=== PATIENT | female | born 1950 | race Caucasian/White ===

== ENCOUNTER 2019-03-30 22:33 | Inpatient (IN) | payer MEDICARE ==
--- NOTE | 2019-03-30 23:19 | RAD ---
Chest one view HISTORY: Chest pain. COMPARISON: 09/19/2009. FINDINGS: Cardiac silhouette is magnified and enlarged. Pulmonary vasculature is unremarkable. Medias tinum is midline. The lateral margin of the left hemidiaphragm is obscured. Blunting of the right lateral costophrenic angle. No evidence of pneumothorax. IMPRESSION: Enlarged cardiac silhouette, favored to represent cardiomegaly. Small amount of bilateral pleural fluid. With bibasilar atelectasis.
[2019-03-30 23:29] LABS: ALT (SGPT) 123 U/L (8-55); AST (SGOT) 113 U/L (5-34); Albumin 3.8 g/dL (3.4-4.8); Alkaline Phosphatase 79 U/L (40-150); Anion Gap 18 mmol/L (10-20); BUN (Urea Nitrogen) 30 mg/dL (9.8-20.1); Bilirubin, Total 1.2 mg/dL (0.2-1.2); Calc. Creatinine Clearance 0 mL/min (70-130); Calcium 8.8 mg/dL (7.8-10.44); Carbon Dioxide 20 mmol/L (23-31); Chloride 104 mmol/L (98-107); Estimated GFR-MDRD 37; Globulin 2.6 g/dL (2.4-3.5); Glucose 107 mg/dL (80-115); Potassium 3.6 mmol/L (3.5-5.1); Protein, Total 6.4 g/dL (6.0-8.3); Sodium 138 mmol/L (136-145)
[2019-03-30 23:30] LABS: Hemoglobin 2.7 g/dL (12.0-16.0); Mean Corpuscular HGB CONC 27.2 g/dL (32.0-36.0); Mean Corpuscular Hemoglobin 15.6 pg (27.0-31.0); Mean Corpuscular Volume 57.4 fL (78.0-98.0); Mean Platelet Volume 5.8 fL (7.4-10.4); Platelet Count 207 thou/uL (130-400); RBC Distribution Width 21.1 % (11.5-14.5); Red Blood Cell (RBC) Count 1.74 mill/uL (4.20-5.40); White Blood Cell (WBC) Count 8.1 thou/uL (4.8-10.8)
[2019-03-30 23:41] LABS: Anisocytosis SLIGHT = 6-15 cells (100X) (0-5/hpf); Elliptocytes SLIGHT = 2-5 cells (100X) (0-1/hpf); Hypochromia MODERATE=16-30 cells (100X) (0-5/hpf); Lymphocytes 24 % (21-51); MDiff Complete? YES; Microcytosis MARKED = >30 cells (100X) (0-5/hpf); Monocytes 8 % (0-10); Neutrophil 68 % (42-75); Nucleated RBC 1 % (0); Polychromasia SLIGHT = 2-3 cells (100X) (0-2/hpf); Reflex for Review?? YES; Tear Drops SLIGHT = 2-5 cells (100X) (0-1/hpf)
[2019-03-30 23:53] LABS: CKMB 2.8 ng/mL (0-6.6)
[2019-03-31 00:03] LABS: INR-International Normal Ratio 2.1; Prothrombin Time 23.9 SEC (12.0-14.7)
[2019-03-31 01:24] LABS: Hemoglobin 2.7 g/dL (12.0-16.0); Mean Corpuscular HGB CONC 26.8 g/dL (32.0-36.0); Mean Corpuscular Hemoglobin 15.2 pg (27.0-31.0); Mean Corpuscular Volume 56.9 fL (78.0-98.0); Mean Platelet Volume 5.7 fL (7.4-10.4); Platelet Count 211 thou/uL (130-400); RBC Distribution Width 20.9 % (11.5-14.5); Red Blood Cell (RBC) Count 1.74 mill/uL (4.20-5.40)
[2019-03-31 01:31] LABS: Elliptocytes SLIGHT = 2-5 cells (100X) (0-1/hpf); Eosinophils 1 % (0-10); Hypochromia MODERATE=16-30 cells (100X) (0-5/hpf); Lymphocytes 26 % (21-51); MDiff Complete? YES; Microcytosis MARKED = >30 cells (100X) (0-5/hpf); Monocytes 5 % (0-10); Neutrophil 67 % (42-75); Polychromasia SLIGHT = 2-3 cells (100X) (0-2/hpf); Tear Drops SLIGHT = 2-5 cells (100X) (0-1/hpf); White Blood Cell (WBC) Count 8.4 thou/uL (4.8-10.8)
[2019-03-31 02:37] LABS: Iron 9 ug/dL (50-170); Iron Binding Capacity, Total 480 mcg/dL (265-497)
[2019-03-31 02:39] LABS: Troponin I 0.109 ng/mL (< 0.028)
[2019-03-31] MEDS ORDERED: Nicotine 14 MG PATCH TD PRN (02:45)
[2019-03-31] MEDS ORDERED: Acetaminophen 500 MG TAB ONE (02:50)
[2019-03-31] MEDS ORDERED: Pantoprazole 40 MG VIAL ONE (02:50)
[2019-03-31] MEDS ORDERED: Ondansetron PF 4 MG/2 ML Vial ONE (02:50)
[2019-03-31] MEDS: Ondansetron PF 4 MG/2 ML Vial IVP PRN (03:14)
[2019-03-31] MEDS ORDERED: Pantoprazole 80 MG in Sodium Chloride 0.9% 100 ML IVP SCH (03:30)
[2019-03-31] MEDS ORDERED: clonazePAM 1 MG TAB PO SCH (03:30)
[2019-03-31] MEDS ORDERED: clonazePAM 1 MG TAB ONE (03:44)
--- NOTE | 2019-03-31 04:47 | HP ---
CHIEF COMPLAINT: Chest pain and shortness of breath. HISTORY OF PRESENT ILLNESS: The patient is a 68-year-old female with past medical history significant for multiple DVTs, currently anticoagulated with Xarelto, who presented to the hospital with a 4-day history of chest discomfort and associated shortness of breath. She describes the chest discomfort as a "rubber band around her chest" and along with a squeezing sensation. This has been exertional. She also has been experiencing nausea and vomiting over the past several days. She denies any melena or coffee-grounds emesis. She has noticed no bright red blood per rectum. Because of her worsening symptoms, she did present to the emergency department for further workup and treatment. Hemoglobin on arrival was 2.7. Her EKG showed sinus rhythm with no acute/dynamic ST or T-wave changes. The patient was given 80 mg of IV Protonix in the emergency department and 4 units of PRBC have also been ordered for the patient. REVIEW OF SYSTEMS: The patient reports that she has had some noticeable shortness of breath and dizziness ongoing for at least the past several months. Otherwise, review of systems is negative except that stated above. She does see her PCP, Dr. Crandall on a regular basis. ALLERGIES: OPIOIDS, MORPHINE ANALOGS, SULFA ANTIBIOTICS. HOME MEDICATIONS: 1. Clonazepam 2 mg tablet 2 mg orally b.i.d. 2. Simvastatin 40 mg tab q.p.m. 3. Xarelto 15 mg tab q.p.m. 4. Melatonin 10 mg q.p.m. 5. Tylenol 325 mg orally p.r.n. PAST MEDICAL HISTORY: Positive for restless legs syndrome, chronic fatigue, chronic hepatitis C, psoriatic arthritis. PAST SURGICAL HISTORY: Lumpectomy of left breast x3, negative biopsies for breast cancer, appendectomy, cholecystectomy, hysterectomy, orthopedic procedure on right knee, IVC filter. PSYCHIATRIC HISTORY: Depression. SOCIAL HISTORY: The patient denies any alcohol use. Denies any illicit drug use. She currently smokes half pack per day. She lives with her son here in town. FAMILY HISTORY: Noncontributory. PHYSICAL EXAMINATION: VITAL SIGNS: Blood pressure 123/46, pulse is 87, temperature 99.1, O2 saturation is 99% on room air. GENERAL: This is a moderately obese female, lying comfortably in bed, in no acute distress. Positive pallor noted. NECK: Supple. No lymphadenopathy. Trachea is midline. No JVD. CV: S1 and S2. Regular rate and rhythm. No appreciable murmurs, rubs, or gallops. LUNGS: Regular respiratory rate in pattern, overall clear to auscultation, somewhat diminished at the bases abdomen positive bowel sounds through all 4 quadrants, nontender to palpation on my exam, no rebound. EXTREMITIES: +1 nonpitting edema bilaterally, both extremities. Show no obvious rashes or evidence of chronic venous stasis dermatitis. NEUROLOGIC: Cranial nerves 2 through 12 are grossly intact. The patient is nonfocal. LABORATORY DATA: White blood cell count 8.4, RBC 1.74, hemoglobin 2.7, hematocrit 9.9, MCV 56.9. PT 23.9, INR 2.1, aPTT 38. Sodium 138, potassium 3.6, chloride 104, carbon dioxide 20, anion gap is 18, BUN 30, creatinine 1.42. Iron level is 9, TIBC is 480. Bilirubin 1.2, AST 113, ALT 123, alkaline phosphatase is 79, troponin 0.085 and 0.109 respectively. ASSESSMENT: 1. Profound microcytic anemia, hemoglobin 2.7 at presentation, hemodynamically stable without overt sign of bleeding; suspect chronic blood loss in the setting of oral anticoagulation. 2. Chest pain/demand ischemia secondary to above. 3. History of multiple (greater than 6) deep venous thrombosis, status post IVC filter, on Xarelto. 4. Elevated liver transaminases, secondary to chronic hepatitis C. 5. Renal insufficiency with creatinine 1.42, unknown baseline. 6. Tobacco abuse. PLAN: The patient has been given 80 mg IV Protonix in the ER. Four units of PRBCs to be transfused. GI to see the patient in a.m. N.p.o. after midnight. The patient does have an IVC filter placed, so we will hold Xarelto until cleared by GI. We will continue p.r.n. antiemetics and supportive care. Continue PPI. The care and plan of this patient have been discussed at length with Dr. Klein who agrees with the above. Job ID: [id number]
[2019-03-31 12:37] LABS: #Eosinphils 0.1 thou/uL (0.0-0.7); #Lymphocytes 1.7 thou/uL (1.20-3.40); #Monocytes 0.8 thou/uL (0.11-0.59); #Neutrophils 6.4 thou/uL (1.40-6.50); %Basophils 0.2 % (0.0-1.0); %Eosinophils 0.6 % (0.0-10.0); %Lymphocytes 18.5 % (21.0-51.0); %Monocytes 8.5 % (0.0-10.0); %Neutrophils 72.2 % (42.0-75.0); Hemoglobin 7.1 g/dL (12.0-16.0); Mean Corpuscular Hemoglobin 22.4 pg (27.0-31.0); Mean Corpuscular Volume 72.2 fL (78.0-98.0); Mean Platelet Volume 5.3 fL (7.4-10.4); Platelet Count 206 thou/uL (130-400); RBC Distribution Width 26.1 % (11.5-14.5); Red Blood Cell (RBC) Count 3.16 mill/uL (4.20-5.40); White Blood Cell (WBC) Count 8.9 thou/uL (4.8-10.8)
[2019-03-31 12:51] LABS: Anisocytosis MARKED = >30 cells (100X) (0-5/hpf); Hypochromia MODERATE=16-30 cells (100X) (0-5/hpf); MDiff Complete? YES; Microcytosis MODERATE=15-30 cells (100X) (0-5/hpf); Platelet Morphology Comment Appears Adequate; Polychromasia MODERATE = 3-4 cells (100X) (0-2/hpf)
[2019-03-31 13:03] LABS: Troponin I 0.119 ng/mL (< 0.028)
[2019-03-31 13:10] LABS: ALT (SGPT) 128 U/L (8-55); AST (SGOT) 102 U/L (5-34); Albumin 3.9 g/dL (3.4-4.8); Alkaline Phosphatase 83 U/L (40-150); Anion Gap 12 mmol/L (10-20); BUN (Urea Nitrogen) 28 mg/dL (9.8-20.1); Bilirubin, Total 3.4 mg/dL (0.2-1.2); Calc. Creatinine Clearance 59 mL/min (70-130); Calcium 9.1 mg/dL (7.8-10.44); Carbon Dioxide 24 mmol/L (23-31); Chloride 105 mmol/L (98-107); Estimated GFR-MDRD 40; Globulin 2.9 g/dL (2.4-3.5); Glucose 91 mg/dL (80-115); Potassium 3.6 mmol/L (3.5-5.1); Protein, Total 6.8 g/dL (6.0-8.3); Sodium 137 mmol/L (136-145)
[2019-03-31] MEDS ORDERED: GoLYTELY 4,000 ml Bottle PO SCH (17:45)
[2019-03-31] MEDS ORDERED: Iron, Sodium Ferric Gluconate 250 MG in Sodium Chloride 0.9% 100 ML IVPB SCH (18:00)
--- NOTE | 2019-03-31 20:09 | CON ---
DATE OF CONSULTATION: 03/31/2019 REASON FOR CONSULTATION: Anemia of unknown origin, iron deficiency anemia. CONSULTING PROVIDER: Julianna Tovar MD HISTORY OF PRESENT ILLNESS: The patient is a 68-year-old female with past medical history of multiple DVTs on anticoagulation, restless legs syndrome, chronic fatigue, chronic hepatitis C infection, psoriatic arthritis, hypothyroidism, and hyperlipidemia, initially presenting with complaints of chest pain and shortness of breath. She states that she was in her usual state of health until approximately five days ago when she began to experience increased shortness of breath primarily on exertion as well as increased mid chest pain. Her mid chest pain was described as, sharp pressure type sensation and would occur almost immediately with consumption of meals. This is also associated with the appearance of midepigastric abdominal pain as well as nausea and vomiting. Concerning her midepigastric abdominal pain, she states that this has been present for the last 2 to 3 days and has been intermittent, occurring at least once daily, but not necessarily occurring throughout the day. She characterized the pain as more of a "hunger pain" that was nonradiating and would reach a severity of 5 to 6/10. The pain was worse with fasting states and vomiting, better with the use of Tums and Prilosec as acid reflux therapy. This was also associated with increased nausea and vomiting with the consumption of meals and would occur primarily with solids as opposed to no symptoms with the consumption of liquids. Given the constellation of symptoms, it prompted her to seek healthcare assistance at [facility], where on admission she was noted to have a significantly decreased H and H consistent with a profound anemia. Upon questioning, the patient denies any episodes of hematemesis, melena, or hematochezia, nor does she endorse any fevers, chills, weight loss, diarrhea, or constipation. Of note, the patient's last colonoscopy was in 2003, for which she states there were "innumerable polyps seen and removed." She also had an upper endoscopy performed at that same time with no observed findings per patient. REVIEW OF SYSTEMS: A 10-category review of systems was obtained with all responses negative except for the pertinent positives as listed in HPI. PAST MEDICAL HISTORY: As per HPI. PAST SURGICAL HISTORY: Lumpectomy of the left breast, appendectomy, cholecystectomy, hysterectomy, right knee surgery, and IVC filter placement. FAMILY HISTORY: She states that her mother was diagnosed with colon cancer in her 80s. Otherwise, denies any additional malignancies. SOCIAL HISTORY: Denies any alcohol or illicit drug use, although she does smoke approximately one-half pack per day. OUTPATIENT MEDICATIONS: Reviewed. ALLERGIES: OPIOIDS, MORPHINE, AND SULFA ANTIBIOTICS. PHYSICAL EXAMINATION: VITAL SIGNS: Temperature 98.4, pulse 75, blood pressure 129/61, respiratory rate 16, and saturating 100% on room air. GENERAL: The patient is lying in bed, in no acute distress. Alert and oriented x4. HEENT: Normocephalic and atraumatic. NECK: Supple. No JVD or scleral icterus noted. CARDIOVASCULAR: 3/6 systolic murmur was best heard at the left upper sternal border with no discernible gallops or rubs. RESPIRATORY: Clear to auscultation bilaterally with no discernible wheezes or rales. ABDOMEN: Normoactive bowel sounds. Soft, nontender, and nondistended. EXTREMITIES: 1+ nonpitting edema to the mid cheung bilaterally. Otherwise, no cyanosis or clubbing. LABORATORY DATA: CBC with a white blood cell count of 8.4, hemoglobin 2.7, hematocrit 9.9, platelets 211, MCV 56.9, and RDW 20.9. INR 2.1. Chemistry with a sodium of 138, potassium 3.6, chloride 104, CO2 of 20, BUN 30, creatinine 1.42, glucose 107, AST 113, ALT 123, alkaline phosphatase 79, and total bilirubin 1.2. Iron 9, ferritin 4, and TIBC 480. IMAGING DATA: Chest x-ray obtained on March 30, 2019, showed an enlarged cardiac silhouette along with small amount of bilateral pleural fluid with bibasilar atelectasis. ASSESSMENT AND PLAN: The patient is a 68-year-old female with past medical history of multiple deep venous thrombosis on anticoagulation, restless legs syndrome, chronic fatigue, chronic hepatitis C infection, psoriatic arthritis, hypothyroidism, and hyperlipidemia, presenting with iron deficiency anemia with anemia of unknown origin. Iron deficiency anemia: The patient is presenting with the fairly acute onset of mid chest pain, dyspnea on exertion, and midepigastric abdominal pain associated with nausea and vomiting that has been present for at least the last 2 to 3 days, if not for the last 4 to 5 days. Upon evaluation of her labs in the [facility] ER, she was noted to have of microcytic anemia with iron indices consistent with an iron deficiency anemia. She currently denies any overt evidence of gastrointestinal bleeding including no hematemesis, melena, or hematochezia. However, upon speaking with her family history, she does have family history of a first-degree relative diagnosed with colon cancer after the age of 60 (it would place the patient at average risk). However, she does have a history of a colonoscopy in 2003 showing innumerable polyps. The colonoscopy is not available for review at this time, but with numerous colonic polyps, is concerning for the presence of an adenomatous process that could potentially lead to cancer contributing to her iron deficiency anemia. However, on admission with her significantly decreased H and H, she is noted to have an elevation in her troponins, which is concerning for an ongoing cardiac process, although more likely to be related to demand ischemia related to her profound anemia. With her elevated troponins, it may delay endoscopic evaluation. Recommendations; 1. Would continue to trend her troponins for evidence of active cardiac disease/pathology. 2. We will continue to replace blood via packed red blood cells with at least the initial goal of an H and H of 7/. 3. Would continue to hold any anticoagulation given the possibility of bleeding source. 4. We would plan for both esophagogastroduodenoscopy and colonoscopy for further evaluation, but would like her troponins to be stable prior to proceeding with the surgeries. We would tentatively plan for both esophagogastroduodenoscopy and colonoscopy on . 5. Would continue to trend H and H and transfuse as necessary to maintain an H and H of 7/21. 6. Would continue to monitor clinically for signs of active gastrointestinal bleeding. Gastroesophageal reflux disease: The patient is presenting with a 2 to 3-day history of increased midepigastric/right upper quadrant abdominal pain that is associated with increased nausea, vomiting, and will reach a severity of 5 to 6/10. This pain was moderately alleviated with the institution of antacids and/or acid suppression therapy as an outpatient and lends itself more to the diagnosis of gastroesophageal reflux disease. Recommendations; 1. We will evaluate this particular diagnosis on upper endoscopy on . 2. Would place the patient on a proton pump inhibitor for now given the possibility of an upper gastrointestinal bleed and/or treatment of this acid reflux. We will continue to follow. Please call with any questions. Job ID: [id number]
[2019-03-31] MEDS ORDERED: Non-Formulary Item 1 EACH (Melatonin [Melatonin] 1 TAB) PO SCH (21:00)
[2019-03-31] MEDS: Melatonin 3 MG TAB PO SCH (21:14)
[2019-03-31] MEDS: clonazePAM 1 MG TAB PO SCH (21:15)
[2019-03-31] MEDS: Acetaminophen 325 MG TAB PO PRN (21:27)
[2019-03-31] MEDS ORDERED: Pantoprazole 80 MG in Sodium Chloride 0.9% 100 ML IVPB SCH (22:30)
[2019-03-31] MEDS ORDERED: Sodium Chloride 0.9% (PF) 10 ML VIAL FS PRN (22:39)
[2019-03-31] MEDS ORDERED: Pantoprazole 40 MG VIAL IVP SCH (22:45)
--- NOTE | 2019-03-31 23:24 | PDOC.PN ---
- Subjective Encounter Start Date: 03/31/19 Encounter Start Time: 18:00 Subjective: f/u for severe, symptomatic anemia with Hgb 2.7 s/p 4u -: PRBC's. Feels less lightheaded and weak. Wants to eat since -: last meal approx 48h+ ago. Denies hematemesis, melena. - Objective MAR Reviewed: Yes Vital Signs & Weight: Vital Signs (12 hours) Temp Pulse Resp BP BP Pulse Ox 03/31/19 15:43 98.4 F 75 16 129/61 100 03/31/19 13:25 97.8 F 68 18 125/59 L 98 Weight Weight 198 lb 6.656 oz I&O: 03/30/19 03/31/19 04/01/19 06:59 06:59 06:59 Intake Total 0 Balance 0 Result Diagrams: 03/31/19 12:21 03/31/19 12:21 Additional Labs: Microbiology 03/31/19 Unknown Stool - Pending Stool Occult Blood (WENDY) - Final Laboratory Tests 03/30/19 03/30/19 03/30/19 23:00 23:00 23:20 Hgb 2.7 L* MCV 57.4 L Plt Count 207 PT INR APTT Creatinine 1.42 H Iron TIBC Ferritin Total Bilirubin AST ALT Troponin I 0.085 H 03/30/19 03/31/19 03/31/19 23:44 01:15 02:03 Hgb 2.7 L* MCV 56.9 L Plt Count 211 PT 23.9 H INR 2.1 APTT 38.0 H Creatinine Iron TIBC Ferritin Total Bilirubin AST ALT Troponin I 0.109 H 03/31/19 03/31/19 03/31/19 02:03 02:03 12:21 Hgb MCV Plt Count PT INR APTT Creatinine Iron 9 L TIBC 480 Ferritin 4.07 L Total Bilirubin AST ALT Troponin I 0.119 H 03/31/19 12:21 Hgb MCV Plt Count PT INR APTT Creatinine Iron TIBC Ferritin Total Bilirubin 3.4 H AST 102 H ALT 128 H Troponin I EKG Reviewed by me: Yes (Tele - SR) Phys Exam - Physical Examination Constitutional: NAD pale, alert, responsive, smiles HEENT: PERRLA, sclera anicteric, oral pharynx no lesions Neck: no nodes, no JVD, supple, full ROM Respiratory: no wheezing, no rales, no rhonchi, clear to auscultation bilateral S1, S2 Cardiovascular: RRR, no significant murmur, no rub, gallop TTP in RLQ Gastrointestinal: soft, no distention, positive bowel sounds Musculoskeletal: no edema, pulses present Neurological: normal sensation, moves all 4 limbs Psychiatric: A&O x 3 Skin: normal turgor, cap refill <2 seconds Dx/Plan (1) Symptomatic anemia Code(s): D64.9 - ANEMIA, UNSPECIFIED Status: Acute Comment: severe anemia s/ p 4u PRBC's, serial H/H, EGD/colonoscopy planned (2) Iron deficiency anemia Code(s): D50.9 - IRON DEFICIENCY ANEMIA, UNSPECIFIED Status: Chronic Qualifiers: Iron deficiency anemia type: chronic blood loss Qualified Code(s): D50.0 - Iron deficiency anemia secondary to blood loss (chronic) Comment: IV Iron infusion in am, serial CBC, chcf po iron replacement (3) Demand ischemia of myocardium Code(s): I24.8 - OTHER FORMS OF ACUTE ISCHEMIC HEART DISEASE Status: Chronic Comment: Suspect due to severe anemia as stated above, no evidence of ACS (4) TARAS (acute kidney injury) Code(s): N17.9 - ACUTE KIDNEY FAILURE, UNSPECIFIED Status: Acute Comment: Continue volume replacement, avoid nephrotoxic agents and limit contrast exposure, serial creatinine (5) Chronic anticoagulation Code(s): Z79.01 - NURSING HOME (CURRENT) USE OF ANTICOAGULANTS Status: Chronic Comment: Hold Xarelto due to #1 - Plan social work nurse, out of bed/ambulate, DVT proph w/SCDs Stable currently -: Continue PPI -: Avoid anticoagulation -: Plan for EGD/colonoscopy 04/02/19 -: AM lab: CMP, CBC * .
[2019-04-01 06:36] LABS: Anisocytosis MODERATE=16-30 cells (100X) (0-5/hpf); Band 4 % (5-11); Elliptocytes SLIGHT = 2-5 cells (100X) (0-1/hpf); Eosinophils 1 % (0-10); Hemoglobin 6.7 g/dL (12.0-16.0); Lymphocytes 20 % (21-51); MDiff Complete? YES; Mean Corpuscular Hemoglobin 22.6 pg (27.0-31.0); Mean Corpuscular Volume 72.7 fL (78.0-98.0); Mean Platelet Volume 5.2 fL (7.4-10.4); Monocytes 6 % (0-10); Neutrophil 69 % (42-75); Platelet Count 188 thou/uL (130-400); Platelet Morphology Comment Appears Adequate; Polychromasia SLIGHT = 2-3 cells (100X) (0-2/hpf); RBC Distribution Width 26.2 % (11.5-14.5); Red Blood Cell (RBC) Count 2.95 mill/uL (4.20-5.40); White Blood Cell (WBC) Count 8.4 thou/uL (4.8-10.8)
[2019-04-01 06:46] LABS: ALT (SGPT) 92 U/L (8-55); AST (SGOT) 60 U/L (5-34); Albumin 3.3 g/dL (3.4-4.8); Alkaline Phosphatase 73 U/L (40-150); Anion Gap 12 mmol/L (10-20); BUN (Urea Nitrogen) 19 mg/dL (9.8-20.1); Bilirubin, Total 1.9 mg/dL (0.2-1.2); Calc. Creatinine Clearance 68 mL/min (70-130); Calcium 8.2 mg/dL (7.8-10.44); Carbon Dioxide 22 mmol/L (23-31); Chloride 107 mmol/L (98-107); Estimated GFR-MDRD 48; Globulin 2.5 g/dL (2.4-3.5); Glucose 84 mg/dL (80-115); Potassium 3.3 mmol/L (3.5-5.1); Protein, Total 5.8 g/dL (6.0-8.3); Sodium 138 mmol/L (136-145)
[2019-04-01 07:47] LABS: Troponin I 0.065 ng/mL (< 0.028)
[2019-04-01] MEDS: clonazePAM 1 MG TAB PO SCH ×2 (08:53→20:38)
[2019-04-01] MEDS: Pantoprazole 40 MG VIAL IVP SCH ×2 (08:53→20:34)
[2019-04-01] MEDS: Venlafaxine HCl XR 75 MG CAP PO SCH (08:53)
[2019-04-01 12:53] VITALS: BMI 33.4
--- NOTE | 2019-04-01 16:39 | PDOC.PN ---
- Subjective Encounter Start Date: 04/01/19 Encounter Start Time: 16:40 Subjective: f/u for severe, symptomatic anemia s/p 4u PRBC's. Received IV Iron -: infusion last pm. Feels better overall. Awaiting endoscopy. - Objective MAR Reviewed: Yes Vital Signs & Weight: Vital Signs (12 hours) Temp Pulse Resp BP Pulse Ox 04/01/19 15:36 98.3 F 78 18 111/53 L 95 04/01/19 11:29 97.6 F 75 19 117/56 L 98 04/01/19 07:27 98.5 F 72 17 135/62 95 Weight Admit Weight 194 lb 11.2 oz Weight 194 lb 11.2 oz I&O: 03/31/19 04/01/19 04/02/19 06:59 06:59 06:59 Intake Total 240 Balance 240 Result Diagrams: 04/01/19 06:04 04/01/19 06:04 Additional Labs: Microbiology 03/31/19 Unknown Stool - Pending Stool Occult Blood (WENDY) - Final Laboratory Tests 03/30/19 03/30/19 03/30/19 23:00 23:00 23:20 Hgb 2.7 L* MCV 57.4 L Plt Count 207 PT INR APTT Potassium Creatinine 1.42 H Iron TIBC Ferritin Total Bilirubin AST ALT Troponin I 0.085 H 03/30/19 03/31/19 03/31/19 23:44 01:15 02:03 Hgb 2.7 L* MCV 56.9 L Plt Count 211 PT 23.9 H INR 2.1 APTT 38.0 H Potassium Creatinine Iron TIBC Ferritin Total Bilirubin AST ALT Troponin I 0.109 H 03/31/19 03/31/19 03/31/19 02:03 02:03 12:21 Hgb MCV Plt Count PT INR APTT Potassium Creatinine Iron 9 L TIBC 480 Ferritin 4.07 L Total Bilirubin AST ALT Troponin I 0.119 H 03/31/19 03/31/19 04/01/19 12:21 12:21 06:04 Hgb 7.1 L MCV Plt Count PT INR APTT Potassium 3.6 Creatinine 1.33 H Iron TIBC Ferritin Total Bilirubin 3.4 H 1.9 H AST 102 H 60 H ALT 128 H 92 H Troponin I EKG Reviewed by me: Yes (Tele - SR) Phys Exam - Physical Examination Constitutional: NAD HEENT: PERRLA, sclera anicteric, oral pharynx no lesions Neck: no nodes, no JVD, supple, full ROM Respiratory: no wheezing, no rales, no rhonchi, clear to auscultation bilateral S1, S2 Cardiovascular: RRR, no significant murmur, no rub, gallop Gastrointestinal: soft, non-tender, no distention, positive bowel sounds Musculoskeletal: no edema, pulses present Neurological: normal sensation, moves all 4 limbs Psychiatric: A&O x 3 Skin: normal turgor, cap refill <2 seconds Dx/Plan (1) Symptomatic anemia Code(s): D64.9 - ANEMIA, UNSPECIFIED Status: Acute Comment: severe anemia s/ p 4u PRBC's, serial H/H, EGD/colonoscopy planned 04/02/19 (2) Iron deficiency anemia Code(s): D50.9 - IRON DEFICIENCY ANEMIA, UNSPECIFIED Status: Chronic Qualifiers: Iron deficiency anemia type: chronic blood loss Qualified Code(s): D50.0 - Iron deficiency anemia secondary to blood loss (chronic) Comment: IV Iron infusion completed, serial CBC, alf po iron replacement (3) Demand ischemia of myocardium Code(s): I24.8 - OTHER FORMS OF ACUTE ISCHEMIC HEART DISEASE Status: Chronic Comment: Suspect due to severe anemia as stated above, no evidence of ACS (4) TAARS (acute kidney injury) Code(s): N17.9 - ACUTE KIDNEY FAILURE, UNSPECIFIED Status: Acute Comment: Continue volume replacement, avoid nephrotoxic agents and limit contrast exposure, serial creatinine (5) Chronic anticoagulation Code(s): Z79.01 - DATABASE CONSULTANT (CURRENT) USE OF ANTICOAGULANTS Status: Chronic Comment: Hold Xarelto due to #1 - Plan out of bed/ambulate, DVT proph w/SCDs Stable currently -: Continue PPI -: Hold all anticoagulation -: Bowel prep with plan for endoscopy -: AM lab: CMP, CBC * .
[2019-04-01] MEDS ORDERED: Potassium Chloride 20 MEQ TAB PO SCH (16:45)
[2019-04-01] MEDS ORDERED: GoLYTELY 4,000 ml Bottle PO SCH (16:45)
[2019-04-01] MEDS: Potassium Chloride 20 MEQ TAB PO SCH (16:53)
--- NOTE | 2019-04-01 17:51 | PRG ---
DATE OF SERVICE: 04/01/2019 SUBJECTIVE: Ms. Waller is feeling about the same as when she came in. She did get 4 units of blood. There is no chest pain or dyspnea. She has been on a liquid diet. She has received some IV iron as well. OBJECTIVE: VITAL SIGNS: Temperature is 98.3, pulse 78, blood pressure 111/53. LUNGS: Clear. ABDOMEN: Soft and nontender. There is no palpable hepatosplenomegaly. LABORATORY DATA: White count 8.4, hemoglobin is 6.7, MCV is 72, platelet count 188. INR was 2.1 on the . She was on Xarelto that has been held. Sodium is 138, potassium 3.3, BUN and creatinine are 19 and 1.13. Bilirubin is 1.9. AST and ALT are 60 and 32. Troponin is 0.065. Occult blood negative. ASSESSMENT: This is a 68-year-old female, who was admitted with severe symptomatic anemia with a hemoglobin of 2.7 and MCV of 57. She has had no overt bleeding. She was on Xarelto for history of deep venous thrombosis. She has been off now since admission, which was yesterday. The patient has no chest pain or shortness of breath. No evidence of fatigue. The patient does note a prior history of colon polyps, she states in about 2001, she had a colonoscopy in [place], [place]. She states they removed she was to have a followup colonoscopy very shortly after that, but "chickened out and never went back." PLAN: Bowel prep, EGD and colonoscopy tomorrow. We will give her one more unit of blood today. Job ID: [id number]
[2019-04-01] MEDS: Melatonin 3 MG TAB PO SCH (20:37)
[2019-04-01] MEDS: Ondansetron PF 4 MG/2 ML Vial IVP PRN (20:37)
[2019-04-01] MEDS: Acetaminophen 325 MG TAB PO PRN (22:58)
[2019-04-02] MEDS: Potassium Chloride 20 MEQ TAB PO SCH ×2 (08:06→16:22)
[2019-04-02] MEDS: Venlafaxine HCl XR 75 MG CAP PO SCH (08:07)
[2019-04-02] MEDS: clonazePAM 1 MG TAB PO SCH ×2 (08:07→20:38)
[2019-04-02] MEDS: Pantoprazole 40 MG VIAL IVP SCH ×2 (08:07→20:39)
[2019-04-02] MEDS ORDERED: Promethazine HCl 25 MG/ML VIAL SLOW IVP PRN (13:45)
[2019-04-02] MEDS ORDERED: Ondansetron HCl/PF 4 MG/2 ML Vial IVP PRN (13:45)
[2019-04-02] MEDS ORDERED: Promethazine HCl 25 MG/ML VIAL IM PRN (13:45)
[2019-04-02] MEDS ORDERED: GoLYTELY 4,000 ml Bottle PO SCH (15:00)
--- NOTE | 2019-04-02 16:08 | OP ---
DATE OF PROCEDURE: 04/02/2019 PROCEDURE PERFORMED: Esophagogastroduodenoscopy with biopsy and aborted colonoscopy. PREOPERATIVE DIAGNOSIS: Severe iron-deficiency anemia. DESCRIPTION OF PROCEDURE: Informed consent was obtained from the patient. She was sedated with total intravenous anesthesia. The bite-block was placed and the endoscope was advanced easily to the second portion of the duodenum and retroflexion was performed in the stomach. 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 This was biopsied. The GE junction was otherwise unremarkable. There was erythematous gastritis in the antrum. Biopsies were obtained from the antrum and body to rule out Helicobacter pylori. Retroflexed views in the stomach were normal. The pylorus and first and second portions of the duodenum were normal. Duodenal biopsies were taken to rule out celiac disease. The patient was turned around. Rectal exam was performed and revealed solid stool in the rectal vault. The colonoscope was advanced to the distal sigmoid, however, still as the scope was advanced more proximally, additional solid stools were encountered. The procedure was aborted at that point. IMPRESSION: 1. 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 2. Erythematous antral gastritis, biopsied to rule out Helicobacter pylori. 3. Otherwise normal EGD. Duodenal biopsies taken to rule out celiac disease. 4. Colonoscopy was aborted due to inadequate bowel prep. RECOMMENDATIONS: 1. Await histopathology. 2. Repeat additional bowel prep this evening and reschedule colonoscopy for tomorrow. Clear liquid diet through this evening. Job ID: [id number]
--- NOTE | 2019-04-02 16:11 | PDOC.PN ---
- Subjective Encounter Start Date: 04/02/19 Encounter Start Time: 16:10 Subjective: f/u for severe, symptomatic anemia s/p 5u PRBC's with EGD today. -: Colonoscopy aborted due to poor prep. Feels ok overall. - Objective MAR Reviewed: Yes Vital Signs & Weight: Vital Signs (12 hours) Temp Pulse Resp BP BP Pulse Ox 04/02/19 15:19 98.0 F 73 18 147/61 H 95 04/02/19 14:29 98.0 F 74 17 136/63 97 04/02/19 11:20 97.3 F L 75 18 138/63 97 04/02/19 07:04 97.5 F L 70 18 135/60 96 Weight Admit Weight 194 lb 11.2 oz Weight 194 lb 11.2 oz I&O: 04/01/19 04/02/19 04/03/19 06:59 06:59 06:59 Intake Total 240 4310 Balance 240 4310 Result Diagrams: 04/01/19 06:04 04/01/19 06:04 Additional Labs: Microbiology 03/31/19 Unknown Stool - Pending Stool Occult Blood (WENDY) - Final Laboratory Tests 03/30/19 03/30/19 03/30/19 23:00 23:00 23:20 Hgb 2.7 L* MCV 57.4 L Plt Count 207 PT INR APTT Potassium Creatinine 1.42 H Iron TIBC Ferritin Total Bilirubin AST ALT Troponin I 0.085 H 03/30/19 03/31/19 03/31/19 23:44 01:15 02:03 Hgb 2.7 L* MCV 56.9 L Plt Count 211 PT 23.9 H INR 2.1 APTT 38.0 H Potassium Creatinine Iron TIBC Ferritin Total Bilirubin AST ALT Troponin I 0.109 H 03/31/19 03/31/19 03/31/19 02:03 02:03 12:21 Hgb MCV Plt Count PT INR APTT Potassium Creatinine Iron 9 L TIBC 480 Ferritin 4.07 L Total Bilirubin AST ALT Troponin I 0.119 H 03/31/19 03/31/19 04/01/19 12:21 12:21 06:04 Hgb 7.1 L MCV Plt Count PT INR APTT Potassium 3.6 Creatinine 1.33 H Iron TIBC Ferritin Total Bilirubin 3.4 H 1.9 H AST 102 H 60 H ALT 128 H 92 H Troponin I EKG Reviewed by me: Yes (Tele - SR) Phys Exam - Physical Examination Constitutional: NAD HEENT: PERRLA, sclera anicteric, oral pharynx no lesions Neck: no nodes, no JVD, supple, full ROM Respiratory: no wheezing, no rales, no rhonchi, clear to auscultation bilateral S1, S2 Cardiovascular: RRR, no significant murmur, no rub, gallop Gastrointestinal: soft, non-tender, no distention, positive bowel sounds Musculoskeletal: no edema, pulses present Neurological: normal sensation, moves all 4 limbs Psychiatric: A&O x 3 Skin: normal turgor, cap refill <2 seconds Deviation from normal: L forearm with mild erythema approx 2 cm in diameter, + warm Dx/Plan (1) Symptomatic anemia Code(s): D64.9 - ANEMIA, UNSPECIFIED Status: Acute Comment: severe anemia s/ p 5u PRBC's, serial H/H, EGD without acute process, colonoscopy aborted due to poor prep and rescheduled 04/03/19 (2) Iron deficiency anemia Code(s): D50.9 - IRON DEFICIENCY ANEMIA, UNSPECIFIED Status: Chronic Qualifiers: Iron deficiency anemia type: chronic blood loss Qualified Code(s): D50.0 - Iron deficiency anemia secondary to blood loss (chronic) Comment: IV Iron infusion completed, serial CBC, mcfp po iron replacement (3) Demand ischemia of myocardium Code(s): I24.8 - OTHER FORMS OF ACUTE ISCHEMIC HEART DISEASE Status: Chronic Comment: Suspect due to severe anemia as stated above, no evidence of ACS (4) TARAS (acute kidney injury) Code(s): N17.9 - ACUTE KIDNEY FAILURE, UNSPECIFIED Status: Acute Comment: Continue volume replacement, avoid nephrotoxic agents and limit contrast exposure, serial creatinine (5) Chronic anticoagulation Code(s): Z79.01 - IMPORTER EXPORTER (CURRENT) USE OF ANTICOAGULANTS Status: Chronic Comment: Hold Xarelto due to #1 (6) Cellulitis of left forearm Code(s): L03.114 - CELLULITIS OF LEFT UPPER LIMB Status: Acute Comment: Small area of cellulitis, add Keflex 500mg QID, monitor for progression, may need small incision for drainage if no improvement in next 24h - Plan social worker health services, out of bed/ambulate, DVT proph w/SCDs Stable currently -: Continue bowel prep for repeat colonoscopy -: Continue Protonix -: FeSO4 replacement for d/c -: Lab: H/H now and in am * .
[2019-04-02] MEDS: Cephalexin 250 MG CAP PO SCH ×2 (17:15→23:43)
[2019-04-02 18:51] LABS: Platelet Count 156 thou/uL (130-400)
[2019-04-02] MEDS: Melatonin 3 MG TAB PO SCH (20:38)
[2019-04-03 06:09] LABS: Anion Gap 15 mmol/L (10-20); BUN (Urea Nitrogen) 5 mg/dL (9.8-20.1); Calc. Creatinine Clearance 94 mL/min (70-130); Calcium 8.7 mg/dL (7.8-10.44); Carbon Dioxide 20 mmol/L (23-31); Chloride 107 mmol/L (98-107); Estimated GFR-MDRD 70; Glucose 82 mg/dL (80-115); Potassium 3.7 mmol/L (3.5-5.1); Sodium 138 mmol/L (136-145)
[2019-04-03 06:21] LABS: #Eosinphils 0.2 thou/uL (0.0-0.7); #Lymphocytes 1.7 thou/uL (1.20-3.40); #Monocytes 0.8 thou/uL (0.11-0.59); #Neutrophils 5.4 thou/uL (1.40-6.50); %Basophils 0.6 % (0.0-1.0); %Eosinophils 2.5 % (0.0-10.0); %Lymphocytes 20.9 % (21.0-51.0); %Monocytes 9.5 % (0.0-10.0); %Neutrophils 66.5 % (42.0-75.0); Hemoglobin 8.1 g/dL (12.0-16.0); Mean Corpuscular Hemoglobin 23.5 pg (27.0-31.0); Mean Corpuscular Volume 78.3 fL (78.0-98.0); Mean Platelet Volume 4.9 fL (7.4-10.4); Platelet Count 162 thou/uL (130-400); RBC Distribution Width 29.8 % (11.5-14.5); Red Blood Cell (RBC) Count 3.44 mill/uL (4.20-5.40); White Blood Cell (WBC) Count 7.7 thou/uL (4.8-10.8)
[2019-04-03] MEDS: Cephalexin 250 MG CAP PO SCH ×4 (06:34→18:21)
[2019-04-03] MEDS ORDERED: Ondansetron HCl/PF 4 MG/2 ML Vial IVP PRN (11:16)
[2019-04-03] MEDS ORDERED: Promethazine HCl 25 MG/ML VIAL IM PRN (11:16)
[2019-04-03] MEDS ORDERED: Promethazine HCl 25 MG/ML VIAL SLOW IVP PRN (11:16)
[2019-04-03] MEDS: Venlafaxine HCl XR 75 MG CAP PO SCH (12:05)
[2019-04-03] MEDS: Potassium Chloride 20 MEQ TAB PO SCH ×2 (12:05→18:18)
[2019-04-03] MEDS: Pantoprazole 40 MG VIAL IVP SCH ×2 (12:06→20:40)
[2019-04-03] MEDS: clonazePAM 1 MG TAB PO SCH ×2 (12:06→20:40)
--- NOTE | 2019-04-03 12:35 | EKG ---
Test Reason : CHEST PAIN Blood Pressure : / mmHG Vent. Rate : 085 BPM Atrial Rate : 085 BPM P-R Int : 150 ms QRS Dur : 082 ms QT Int : 398 ms P-R-T Axes : 064 001 036 degrees QTc Int : 473 ms Normal sinus rhythm Possible Left atrial enlargement Borderline ECG Confirmed by VANIA NEUMANN ([id number]), photograph editor OLGA LIDIA SAHA ([id number]) on 04/03/2019 12:35:12 PM Referred By: Confirmed By:VANIA NEUMANN
--- NOTE | 2019-04-03 13:03 | OP ---
DATE OF PROCEDURE: 04/03/2019 PROCEDURES PERFORMED: Colonoscopy with snare polypectomy. PREOPERATIVE DIAGNOSIS: Iron deficiency anemia. DESCRIPTION OF PROCEDURE: Informed consent was obtained from the patient. She was sedated with total intravenous anesthesia. The rectal exam was performed and was normal. The colonoscope was advanced to the terminal ileum without significant difficulty. The terminal ileum was normal. The ileocecal valve and appendiceal orifice were clearly identified. The preparation quality was good overall. There was some bile staining in the right colon and transverse colon. I removed 2 polyps measuring 4 and 5 mm from the descending colon by cold snare polypectomy. There was moderate diverticulosis in the sigmoid colon. Retroflex views in the rectum were unremarkable. The colonoscopy was otherwise normal. IMPRESSION: 1. Sigmoid moderate diverticulosis. 2. Two polyps measuring 4 and 5 mm, removed from the descending colon by cold snare polypectomy. 3. Otherwise normal colonoscopy to the terminal ileum. RECOMMENDATIONS: 1. Await histopathology from the EGD yesterday and the colon polyps today. 2. Repeat colonoscopy in 5 years. 3. Consider outpatient capsule endoscopy to further evaluate for bleeding source. Job ID: [id number]
--- NOTE | 2019-04-03 17:18 | PDOC.PN ---
- Subjective Encounter Start Date: 04/03/19 Encounter Start Time: 17:17 Subjective: Admitted due to chest pain and SOB and was found to have severe anemia -: Feeling better but still weak. had colonoscopy earlier today. - Objective Vital Signs & Weight: Vital Signs (12 hours) Temp Pulse Resp BP BP Pulse Ox 04/03/19 16:31 99 F 79 18 142/63 H 98 04/03/19 11:50 97.8 F 75 18 157/68 H 95 04/03/19 07:42 97.8 F 70 18 141/65 H 97 Weight Admit Weight 194 lb 11.2 oz Weight 194 lb 11.2 oz I&O: 04/02/19 04/03/19 04/04/19 06:59 06:59 06:59 Intake Total 4310 1979 Balance 4310 1979 Result Diagrams: 04/03/19 05:17 04/03/19 05:17 Phys Exam - Physical Examination Constitutional: NAD HEENT: PERRLA, moist MMs Neck: no JVD, supple Respiratory: no rales, no rhonchi Cardiovascular: RRR systolic murmur noted Gastrointestinal: soft, non-tender, no distention, positive bowel sounds Musculoskeletal: no edema, pulses present Neurological: non-focal, moves all 4 limbs Psychiatric: normal affect, A&O x 3 Dx/Plan (1) H/O deep venous thrombosis Code(s): Z86.718 - PERSONAL HISTORY OF OTHER VENOUS THROMBOSIS AND EMBOLISM Status: Acute (2) GI bleed Code(s): K92.2 - GASTROINTESTINAL HEMORRHAGE, UNSPECIFIED Status: Acute (3) TARAS (acute kidney injury) Code(s): N17.9 - ACUTE KIDNEY FAILURE, UNSPECIFIED Status: Acute Comment: Continue volume replacement, avoid nephrotoxic agents and limit contrast exposure, serial creatinine (4) Symptomatic anemia Code(s): D64.9 - ANEMIA, UNSPECIFIED Status: Acute Comment: severe anemia s/ p 5u PRBC's, serial H/H, EGD without acute process, colonoscopy aborted due to poor prep and rescheduled 04/03/19 (5) Chronic anticoagulation Code(s): Z79.01 - HALF-WAY (CURRENT) USE OF ANTICOAGULANTS Status: Chronic Comment: Hold Xarelto due to #1 (6) Demand ischemia of myocardium Code(s): I24.8 - OTHER FORMS OF ACUTE ISCHEMIC HEART DISEASE Status: Chronic Comment: Suspect due to severe anemia as stated above, no evidence of ACS (7) Iron deficiency anemia Code(s): D50.9 - IRON DEFICIENCY ANEMIA, UNSPECIFIED Status: Chronic Qualifiers: Iron deficiency anemia type: chronic blood loss Qualified Code(s): D50.0 - Iron deficiency anemia secondary to blood loss (chronic) Comment: IV Iron infusion completed, serial CBC, correction po iron replacement - Plan Continue PPI. -: Monitor H/H and transfuse as needed. -: Capsule endoscopy contemplated by GI -: Advance diet. -: Give IV iro supplement today * .
[2019-04-03] MEDS ORDERED: Iron, Sodium Ferric Gluconate 250 MG in Sodium Chloride 0.9% 100 ML IVPB SCH ×2 (17:30→18:45)
[2019-04-03] MEDS: Melatonin 3 MG TAB PO SCH (20:41)
[2019-04-04] MEDS: Cephalexin 250 MG CAP PO SCH ×3 (00:29→11:20)
[2019-04-04] MEDS: clonazePAM 1 MG TAB PO SCH (07:54)
[2019-04-04] MEDS: Potassium Chloride 20 MEQ TAB PO SCH (07:54)
[2019-04-04] MEDS: Venlafaxine HCl XR 75 MG CAP PO SCH (07:55)
[2019-04-04] MEDS: Pantoprazole 40 MG VIAL IVP SCH (07:58)
[2019-04-04 10:55] LABS: Hemoglobin 8.6 g/dL (12.0-16.0)
[2019-04-04 11:12] LABS: Anion Gap 13 mmol/L (10-20); BUN (Urea Nitrogen) 5 mg/dL (9.8-20.1); Calc. Creatinine Clearance 90 mL/min (70-130); Calcium 8.4 mg/dL (7.8-10.44); Carbon Dioxide 21 mmol/L (23-31); Chloride 111 mmol/L (98-107); Estimated GFR-MDRD 64; Glucose 109 mg/dL (80-115); Potassium 4.6 mmol/L (3.5-5.1); Sodium 140 mmol/L (136-145)
[2019-04-04 11:24] VITALS: BP 143/64; TEMP 98.3
--- NOTE | 2019-04-04 11:30 | PRG ---
DATE OF SERVICE: 04/04/2019 SUBJECTIVE: Ms. Waller has no abdominal pain or overt GI bleeding. She is tolerating a solid diet. OBJECTIVE: VITAL SIGNS: Temperature 98.2, pulse 69, blood pressure 142/64. GENERAL: She is in no acute distress. Alert and oriented x3. LUNGS: Clear to auscultation bilaterally. HEART: Regular rate and rhythm without murmur. ABDOMEN: Soft, nontender, nondistended. Bowel sounds are present. EXTREMITIES: No lower extremity edema. LABORATORY DATA: Her hemoglobin is 8.6 today, up from 8.1 yesterday. IMPRESSION: 1. Severe iron deficiency anemia. Her upper endoscopy showed erythematous gastritis in the stomach, but no obvious bleeding source. Colonoscopy revealed a couple of small polyps with pathology pending, but no significant bleeding source in the colon either. 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 She will likely need to restart her anticoagulation due to her recurrent deep venous thrombosis risk. She can maintain daily iron supplementation and will need to follow trend of her hemoglobin closely. 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 3. History of hepatitis C. Her liver tests were elevated on presentation. She has seen a electromechanical technologist before as an outpatient, but has not followed up regarding that. She did not have obvious varices in the esophagus. The gastric erythematous changes could have a possible consideration for gastric antral vascular ectasias; however, the appearance was not typical of that at the time of endoscopy. We will keep that in mind the potential for bleeding source given her underlying chronic liver disease. 4. Family history of colon cancer. Again, she had 2 small polyps removed on 04/03/2019. Pathology from these are pending. RECOMMENDATIONS: 1. Iron supplementation. 2. Proton pump inhibitor daily. 3. Follow up in GI clinic. She will need to have her hemoglobin followed and also status of her liver disease evaluated. 4. Capsule endoscopy can be considered as well as an outpatient for further evaluation of iron deficiency anemia. 5. It is anticipated that she will be discharged home today. Job ID: [id number]
--- NOTE | 2019-04-04 15:31 | DIS ---
DATE OF ADMISSION: 03/31/2019 DATE OF DISCHARGE: 04/04/2019 PRIMARY CARE PHYSICIAN: Dr. Jacoby Crandall. DISCHARGE DIAGNOSES: 1. Severe symptomatic anemia. 2. Demand ischemia of the myocardium. 3. Acute kidney injury. 4. Severe iron deficiency anemia. 5. Chronic GI bleed. 6. Chronic anticoagulation with Xarelto. 7. Prior history of recurrent deep vein thrombosis. 8. Hypokalemia. 9. Physical deconditioning. 10. Restless legs. 11. Left forearm phlebitis. 12. Rosa esophagus. 13. Gastritis. 14. Sigmoid diverticulosis. 15. Colon polyps. CONSULTS: Gastroenterology. PROCEDURES PERFORMED: 1. Blood transfusion. 2. Esophagogastroduodenoscopy. 3. Colonoscopy. HOSPITAL COURSE: A 68-year-old female admitted due to worsening generalized weakness associated with chest pain and shortness of breath especially on exertion as well as mild epigastric pain, nausea, and vomiting. The patient was found to have severe anemia of 2.7 on presentation and was subsequently treated with packed red blood cells transfusion. GI consult was obtained and the patient subsequently had upper and lower endoscopy. EGD showed 1 cm segment of Rosa esophagus, which was biopsied as well as erythematous antral gastritis. Colonoscopy showed sigmoid diverticulosis as well as 2 polyps which were removed by cold snare polypectomy. The patient also received IV iron for severe iron deficiency with prompt improvement in hemoglobin. The patient also had a hypokalemia and acute kidney injury, which were thought to be related to severe anemia and associated cardiac decompensation. These all improved with blood transfusion and iron therapy. General weakness, chest pain, and shortness of breath subsided with blood transfusion. The patient who carries diagnosis of hepatitis C was advised to follow up with GI for possible consideration for treatment. Given that hemoglobin improved and was stable with no overt evidence of bleeding and concern for possible noncompliance on the part of the patient, it was decided that the patient should be restarted on anticoagulation with Xarelto with close followup with GI and PCP in 2 and one week respectively. Hospital course was complicated by development of left forearm swelling with mild purulent drainage, which was thought to be phlebitis. The patient was started on Keflex with improvement. She was discharged on 5 days of Keflex. PHYSICAL EXAMINATION: VITAL SIGNS: Temperature 98.3, pulse 75, respiratory rate 18, SpO2 of 95% on room air, blood pressure 143/64. GENERAL: Healthy-looking elderly female, in no distress. Afebrile. Anicteric. Acyanotic. HEENT: Normocephalic, atraumatic. Pupils are reacting to light. CARDIOVASCULAR: Regular rhythm and rate with normal heart sounds. Soft systolic murmur appreciated. RESPIRATORY: Good air entry bilaterally with no obvious crackle or rhonchi or use of accessory muscles. GI: Obese, soft, nontender, nondistended with normal bowel sounds. EXTREMITIES: Mild bilateral leg edema noted. Otherwise grossly normal and atraumatic with no erythema. NEUROLOGIC: Conscious and alert and oriented x3 with appropriate mental status. Cranial nerves 2 through 12 are intact. The patient is ambulant. DISCHARGE CONDITION: Improved. DISCHARGE MEDICATIONS: 1. Tylenol 500 mg two tablets daily at bedtime. 2. Clonazepam 2 mg p.o. b.i.d. 3. Melatonin 5 mg daily at bedtime. 4. Xarelto 15 mg daily at bedtime. 5. Simvastatin 40 mg daily at bedtime. 6. Venlafaxine 75 mg daily. 7. Nicotine patch 14 mg daily. 8. Keflex 500 mg q.i.d. for 5 days. 9. Ferrous sulfate 325 mg p.o. t.i.d. 10. Protonix 40 mg daily. FOLLOWUP: 1. PCP in 1 week. 2. With GI in 2 weeks. This discharge took more than 40 minutes. Job ID: [id number]
== END 2019-04-04 16:31 | disposition home or self-care (01) | DRG 378 ==
LOC: ERS 22:33 → ERHOLD 03-31 02:08 → 2NO 03-31 13:40
PROVIDERS: ADMIT Hospitalist; ATTEND Hospitalist
PROC: 30233N1 Transfusion of Nonautologous Red Blood Cells into Peripheral Vein, Percutaneous Approach (ICD-10-PCS; principal; 2019-03-31)
PROC: 0DB98ZX Excision of Duodenum, Via Natural or Artificial Opening Endoscopic, Diagnostic (ICD-10-PCS; 2019-04-02)
PROC: 0DB78ZX Excision of Stomach, Pylorus, Via Natural or Artificial Opening Endoscopic, Diagnostic (ICD-10-PCS; 2019-04-02)
PROC: 0DJD8ZZ Inspection of Lower Intestinal Tract, Via Natural or Artificial Opening Endoscopic (ICD-10-PCS; 2019-04-02)
PROC: 0DBL8ZZ Excision of Transverse Colon, Via Natural or Artificial Opening Endoscopic (ICD-10-PCS; 2019-04-03)
DX: K57.91 Diverticulosis of intestine, part unspecified, without perforation or abscess with bleeding (principal); I24.8 Other forms of acute ischemic heart disease; N17.9 Acute kidney failure, unspecified; L03.114 Cellulitis of left upper limb; K29.61 Other gastritis with bleeding; G25.81 Restless legs syndrome; F17.210 Nicotine dependence, cigarettes, uncomplicated; E03.9 Hypothyroidism, unspecified; D50.0 Iron deficiency anemia secondary to blood loss (chronic); K63.5 Polyp of colon; K22.70 Barrett's esophagus without dysplasia; E87.6 Hypokalemia; I80.9 Phlebitis and thrombophlebitis of unspecified site; F32.9 Major depressive disorder, single episode, unspecified; Z88.8 Allergy status to other drugs, medicaments and biological substances; Z88.2 Allergy status to sulfonamides; Z88.5 Allergy status to narcotic agent; Z90.49 Acquired absence of other specified parts of digestive tract; Z90.710 Acquired absence of both cervix and uterus; Z79.01 Long term (current) use of anticoagulants
CPT/HCPCS: 36415; 36430; 71045; 80048; 80053; 82274; 82553; 82728; 83540; 83550; 84484; 85007; 85014; 85018; 85025; 85027; 85049; 85060; 85610; 85730; 86850; 86900; 86901; 86922; 88305; 88312; 88313; 93005; 96374; C9113; J2405; J2916; J3490; P9016